=== PATIENT | male | born 1955 | race Caucasian/White ===

== ENCOUNTER 2021-09-15 12:09 | Inpatient (IN) | payer MEDICARE ==
[2021-09-15 13:40] LABS: #Lymphocytes 0.6 thou/uL (1.20-3.40); #Monocytes 0.7 thou/uL (0.11-0.59); #Neutrophils 8.6 thou/uL (1.40-6.50); %Basophils 0.1 % (0.0-1.0); %Eosinophils 0.4 % (0.0-10.0); %Lymphocytes 5.9 % (21.0-51.0); %Monocytes 7.1 % (0.0-10.0); %Neutrophils 86.5 % (42.0-75.0); Hemoglobin 10.3 g/dL (14.0-18.0); Mean Corpuscular HGB CONC 33.8 g/dL (32.0-36.0); Mean Corpuscular Hemoglobin 29.7 pg (27.0-31.0); Mean Corpuscular Volume 87.9 fL (78.0-98.0); Mean Platelet Volume 8.4 fL (7.4-10.4); Platelet Count 342 thou/uL (130-400); Red Blood Cell (RBC) Count 3.48 mill/uL (4.70-6.10); White Blood Cell (WBC) Count 9.9 thou/uL (4.8-10.8)
[2021-09-15 14:02] LABS: ALT (SGPT) 25 U/L (8-55); AST (SGOT) 43 U/L (5-34); Albumin 3.6 g/dL (3.4-4.8); Alkaline Phosphatase 145 U/L (40-110); Anion Gap 25 mmol/L (10-20); BUN (Urea Nitrogen) 28 mg/dL (8.4-25.7); Bilirubin, Total 0.8 mg/dL (0.2-1.2); Calc. Creatinine Clearance 0 mL/min (70-130); Calcium 8.8 mg/dL (7.8-10.44); Carbon Dioxide 15 mmol/L (23-31); Chloride 93 mmol/L (98-107); Globulin 2.5 g/dL (2.4-3.5); Glucose 110 mg/dL (80-115); Potassium 3.7 mmol/L (3.5-5.1); Protein, Total 6.1 g/dL (5.8-8.1); Sodium 129 mmol/L (136-145)
[2021-09-15 15:27] LABS: Actual Bicarbonate (HCO3v) 21 mEq/L (22-28); Analyzer IN Cardio ER; Base Excess -3.3 mEq/L (-2.0 to +3.0); Chloride (VBG) 95 mmol/L (98-106); Potassium (VBG) 3.59 mmol/L (3.70-5.30); Sodium 127.5 mmol/L (133-146); pH (venous) 7.42 (7.32-7.43)
[2021-09-15 15:45] LABS: Bilirubin Negative (Negative); Blood, Urine Negative (Negative); Clarity Clear (Clear); Glucose, Urine (Dipstick) 30 mg/dL (Negative); Ketone, Urine 10 mg/dL (Negative); Leukocyte Negative Leu/uL (Negative); Nitrite Negative (Negative); Protein, Urine (Dipstick) 10 mg/dL (Neg-Trace); Specific Gravity, Urine 1.017 (1.002-1.036); Urobilinogen Normal mg/dL (Less than 2)
[2021-09-15 18:35] LABS: Troponin I 0.018 ng/mL (< 0.028)
[2021-09-15] MEDS ORDERED: Acetaminophen 325 MG TAB PO PRN (19:00)
[2021-09-15] MEDS ORDERED: Ondansetron ODT 4 MG TAB SL PRN (19:00)
[2021-09-15] MEDS ORDERED: Ondansetron PF 4 MG/2 ML Vial IVP PRN (19:00)
[2021-09-15 19:35] VITALS: BMI 24.9
[2021-09-15] MEDS: Sodium Chloride 0.9% 1,000 ML IV SCH (20:11)
[2021-09-15 21:15] LABS: Troponin I 0.018 ng/mL (< 0.028)
[2021-09-16] MEDS ORDERED: Sodium Chloride 0.9% 500 ML IV SCH (00:30)
[2021-09-16] MEDS: Sodium Chloride 0.9% 1,000 ML IV SCH (00:48)
[2021-09-16 01:26] LABS: Anion Gap 13 mmol/L (10-20); BUN (Urea Nitrogen) 27 mg/dL (8.4-25.7); Calc. Creatinine Clearance 39 mL/min (70-130); Calcium 7.8 mg/dL (7.8-10.44); Carbon Dioxide 22 mmol/L (23-31); Chloride 100 mmol/L (98-107); Glucose 128 mg/dL (80-115); Sodium 132 mmol/L (136-145)
[2021-09-16] MEDS ORDERED: Potassium Chloride 20 MEQ TAB PO SCH (02:00)
[2021-09-16] MEDS ORDERED: Acetaminophen 325 MG TAB PO PRN (02:07)
[2021-09-16] MEDS ORDERED: Ondansetron PF 4 MG/2 ML Vial IVP PRN (02:07)
[2021-09-16] MEDS ORDERED: Albuterol 200 PUFF (6.7GM INHALER) INH PRN (02:15)
[2021-09-16] MEDS ORDERED: Hydrocortisone Sod Succ/PF 100 mg/2 ml Vial IVP SCH ×2 (02:30→09:00)
[2021-09-16 05:08] LABS: #Eosinphils 0.1 thou/uL (0.0-0.7); #Lymphocytes 0.3 thou/uL (1.20-3.40); #Monocytes 0.3 thou/uL (0.11-0.59); #Neutrophils 5.2 thou/uL (1.40-6.50); %Lymphocytes 5.7 % (21.0-51.0); %Monocytes 4.2 % (0.0-10.0); Hemoglobin 8.3 g/dL (14.0-18.0); Mean Corpuscular HGB CONC 34.4 g/dL (32.0-36.0); Mean Corpuscular Hemoglobin 30.8 pg (27.0-31.0); Mean Corpuscular Volume 89.4 fL (78.0-98.0); Mean Platelet Volume 8.5 fL (7.4-10.4); Platelet Count 257 thou/uL (130-400); RBC Distribution Width 14.8 % (11.5-14.5); Red Blood Cell (RBC) Count 2.71 mill/uL (4.70-6.10); White Blood Cell (WBC) Count 5.9 thou/uL (4.8-10.8)
[2021-09-16 05:29] LABS: Anion Gap 13 mmol/L (10-20); BUN (Urea Nitrogen) 23 mg/dL (8.4-25.7); Calc. Creatinine Clearance 45 mL/min (70-130); Calcium 7.5 mg/dL (7.8-10.44); Carbon Dioxide 21 mmol/L (23-31); Chloride 101 mmol/L (98-107); Glucose 155 mg/dL (80-115); Magnesium 1.1 mg/dL (1.6-2.6); Potassium 3.4 mmol/L (3.5-5.1); Sodium 132 mmol/L (136-145)
[2021-09-16] MEDS ORDERED: Heparin 5,000 UNITS/ML VIAL SC SCH (09:00)
[2021-09-16] MEDS ORDERED: predniSONE 5 MG TAB PO SCH (09:00)
[2021-09-16] MEDS: Clopidogrel Bisulfate 75 MG TAB PO SCH (09:02)
[2021-09-16] MEDS: Mycophenolate 250 MG CAP PO SCH (09:02)
[2021-09-16] MEDS: Atorvastatin Calcium 40 MG TAB PO SCH (09:02)
[2021-09-16] MEDS: Doxycycline 100 MG CAP PO SCH (09:25)
[2021-09-16] MEDS ORDERED: Magnesium 2 GM/50 ML 2 GM in Premix Bag 1 BAG IVPB SCH (10:15)
[2021-09-16 11:48] LABS: SARS-CoV-2 PCR by NAA Not Detected (NotDetected)
[2021-09-16] MEDS: Hydrocortisone Sod Succ/PF 100 mg/2 ml Vial IVP SCH ×2 (16:56→21:02)
[2021-09-17] MEDS: Hydrocortisone Sod Succ/PF 100 mg/2 ml Vial IVP SCH (00:38)
[2021-09-17 06:18] LABS: #Lymphocytes 0.6 thou/uL (1.20-3.40); #Monocytes 0.4 thou/uL (0.11-0.59); #Neutrophils 5.6 thou/uL (1.40-6.50); %Basophils 0.2 % (0.0-1.0); %Eosinophils 0.5 % (0.0-10.0); %Lymphocytes 8.3 % (21.0-51.0); %Monocytes 6.5 % (0.0-10.0); %Neutrophils 84.5 % (42.0-75.0); Mean Corpuscular HGB CONC 33.2 g/dL (32.0-36.0); Mean Corpuscular Hemoglobin 29.9 pg (27.0-31.0); Mean Corpuscular Volume 90.2 fL (78.0-98.0); Mean Platelet Volume 8.5 fL (7.4-10.4); Platelet Count 276 thou/uL (130-400); RBC Distribution Width 14.9 % (11.5-14.5); Red Blood Cell (RBC) Count 2.67 mill/uL (4.70-6.10); White Blood Cell (WBC) Count 6.6 thou/uL (4.8-10.8)
[2021-09-17 06:19] LABS: Anion Gap 14 mmol/L (10-20); BUN (Urea Nitrogen) 18 mg/dL (8.4-25.7); Calc. Creatinine Clearance 55 mL/min (70-130); Calcium 7.9 mg/dL (7.8-10.44); Carbon Dioxide 22 mmol/L (23-31); Chloride 100 mmol/L (98-107); Glucose 141 mg/dL (80-115); Magnesium 1.5 mg/dL (1.6-2.6); Potassium 3.4 mmol/L (3.5-5.1); Sodium 133 mmol/L (136-145)
[2021-09-17] MEDS: Clopidogrel Bisulfate 75 MG TAB PO SCH (08:33)
[2021-09-17] MEDS: Doxycycline 100 MG CAP PO SCH (08:33)
[2021-09-17] MEDS: Atorvastatin Calcium 40 MG TAB PO SCH (08:34)
[2021-09-17] MEDS: Mycophenolate 250 MG CAP PO SCH (08:35)
[2021-09-17] MEDS ORDERED: Metoprolol Tartrate 50 MG TAB PO SCH (11:00)
[2021-09-17] MEDS ORDERED: predniSONE 5 MG TAB PO SCH (11:00)
[2021-09-17] MEDS ORDERED: Potassium Chloride 20 MEQ TAB PO SCH (11:15)
[2021-09-17] MEDS ORDERED: Magnesium Oxide 400 MG TAB PO SCH (11:30)
[2021-09-17] MEDS: Potassium Chloride 20 MEQ TAB PO SCH (17:55)
[2021-09-17] MEDS: Metoprolol Tartrate 50 MG TAB PO SCH (21:23)
[2021-09-17] MEDS: Magnesium Oxide 400 MG TAB PO SCH (21:26)
[2021-09-18] MEDS ORDERED: predniSONE 5 MG TAB PO SCH (08:00)
[2021-09-18 09:50] VITALS: TEMP 97.5
[2021-09-18] MEDS: Potassium Chloride 20 MEQ TAB PO SCH (09:50)
[2021-09-18] MEDS: Clopidogrel Bisulfate 75 MG TAB PO SCH (09:50)
[2021-09-18] MEDS: Metoprolol Tartrate 50 MG TAB PO SCH (09:50)
[2021-09-18] MEDS: Doxycycline 100 MG CAP PO SCH (09:50)
[2021-09-18] MEDS: Atorvastatin Calcium 40 MG TAB PO SCH (09:51)
[2021-09-18] MEDS: Mycophenolate 250 MG CAP PO SCH (09:51)
[2021-09-18] MEDS: Magnesium Oxide 400 MG TAB PO SCH (09:51)
[2021-09-18 13:21] VITALS: BP 124/82
== END 2021-09-18 12:40 | disposition home or self-care (01) | DRG 312 ==
LOC: ERS 12:09 → ERHOLD 16:14 → 2NO 18:42 → OBSVTOIN 09-16 10:50
PROVIDERS: ADMIT Internal Medicine; ATTEND Family Medicine
DX: I95.1 Orthostatic hypotension (principal); E87.1 Hypo-osmolality and hyponatremia; N17.9 Acute kidney failure, unspecified; E27.40 Unspecified adrenocortical insufficiency; E87.2 Acidosis; L12.0 Bullous pemphigoid; I47.1 Supraventricular tachycardia; E78.5 Hyperlipidemia, unspecified; I25.10 Atherosclerotic heart disease of native coronary artery without angina pectoris; N18.30 Chronic kidney disease, stage 3 unspecified; D64.9 Anemia, unspecified; I12.9 Hypertensive chronic kidney disease with stage 1 through stage 4 chronic kidney disease, or unspecified chronic kidney disease; E87.6 Hypokalemia; K21.9 Gastro-esophageal reflux disease without esophagitis; E83.42 Hypomagnesemia; E78.00 Pure hypercholesterolemia, unspecified; Z20.822 Contact with and (suspected) exposure to COVID-19; Z95.5 Presence of coronary angioplasty implant and graft; I69.398 Other sequelae of cerebral infarction; Z88.8 Allergy status to other drugs, medicaments and biological substances; Z79.51 Long term (current) use of inhaled steroids; Z79.899 Other long term (current) drug therapy; Z85.46 Personal history of malignant neoplasm of prostate
CPT/HCPCS: 36415; 70450; 71045; 72125; 80048; 80053; 81003; 82274; 82533; 82805; 83735; 84484; 85025; 93005; 93306; 93880; 96374; 96376; G0378; J1720; J3475; J7030; J7050; J7512; J7517; U0003; U0005

== ENCOUNTER 2024-02-09 09:52 | Outpatient (CLI) | payer MEDICARE | END 2024-02-09 09:53 | disposition home or self-care (01) | LOC: RAD 09:52 | PROVIDERS: ATTEND Physician Assistant | DX: R06.02 Shortness of breath (principal); R91.8 Other nonspecific abnormal finding of lung field; J98.6 Disorders of diaphragm | CPT/HCPCS: 36415; 71046; 80053; 83880 ==